=== PATIENT | female | born 1965 | race Caucasian/White ===

== ENCOUNTER 2017-01-13 09:15 | Emergency (ER) | payer OTHER ==
[2017-01-13 10:47] LABS: HEMOGLOBIN 12.4 gm/dl (12.3-15.3); RED BLOOD COUNT 4.45 M/UL (4.00-5.10); WHITE BLOOD COUNT 5.1 K/UL (4.5-11.0)
[2017-01-13 11:36] LABS: BUN/CREATININE RATIO 34 (0-10)
[2017-06-12] MEDS ORDERED: ELAVIL 10 MG TA10 MG PO (21:52)
[2017-06-12] MEDS ORDERED: LISINOPRIL40 MG PO (21:52)
[2017-06-12] MEDS ORDERED: HYDROCHLOROTHIA25 MG PO (21:53)
[2017-06-13] MEDS ORDERED: LEVAQUIN750 MG PO (16:09)
[2017-06-13] MEDS ORDERED: PROTONIX40 M1 PO (16:10)
[2017-06-13] MEDS ORDERED: PRAVACHOL40 MG PO (16:11)
[2017-06-13] MEDS ORDERED: TESSALON PERLE100 MG PO (16:11)
== END 2017-01-13 13:22 | disposition home or self-care (01) ==
LOC: ER1 09:15
PROVIDERS: Emergency Medicine
DX: M25.512 Pain in left shoulder (principal); R07.9 Chest pain, unspecified; E11.9 Type 2 diabetes mellitus without complications; I10 Essential (primary) hypertension; Z79.82 Long term (current) use of aspirin; Z79.899 Other long term (current) drug therapy
CPT/HCPCS: 36415; 73030; 80053; 84484; 85025; 93005; 99284

== ENCOUNTER → 2017-03-17 | Outpatient (CLI) | payer OTHER ==
[~2017-03-17] MED LIST: ELAVIL 10 MG TA10 MG PO; HYDROCHLOROTHIA25 MG PO; LEVAQUIN750 MG PO; LISINOPRIL40 MG PO; PRAVACHOL40 MG PO; PROTONIX40 M1 PO; TESSALON PERLE100 MG PO
== END ==
LOC: RAD 08:44
DX: M54.5 Low back pain (principal); M47.816 Spondylosis without myelopathy or radiculopathy, lumbar region
CPT/HCPCS: 72110

== ENCOUNTER → 2021-02-18 | Outpatient (CLI) | payer OTHER ==
[~2021-02-18] MED LIST changes: +AMARYL1 MG PO; +ARIMIDEX 1 MG TA1 MG PO; +ASPIRIN EC81 MG PO; +HYDROCODON-ACE1 EAC4 PO; +HYDROXYCHLOROQ200 MG PO; +HYDROXYZINE HCL50 MG PO; +JANUVIA 100 MG100 MG PO; +OMEGA-3 ACID ETH1 GM PO; +PREDNISONE 50 M50 MG PO; +PREDNISONE20 MG PO; +TAMSULOSIN HCL0.4 MG PO; +ZOFRAN ODT 4 MG4 MG PO
== END ==
LOC: KOH-I 08:00
DX: K76.0 Fatty (change of) liver, not elsewhere classified (principal); R07.89 Other chest pain; E04.1 Nontoxic single thyroid nodule
CPT/HCPCS: 71250

== ENCOUNTER → 2021-02-24 | Outpatient (CLI) | payer OTHER | LOC: EXRD 08:27 | DX: R10.13 Epigastric pain (principal); R79.89 Other specified abnormal findings of blood chemistry; K76.0 Fatty (change of) liver, not elsewhere classified; N20.0 Calculus of kidney | CPT/HCPCS: 76700 ==

== ENCOUNTER → 2021-03-06 | Outpatient (CLI) | payer OTHER | LOC: EXRD 14:25 | DX: E04.1 Nontoxic single thyroid nodule (principal); E04.2 Nontoxic multinodular goiter | CPT/HCPCS: 76536 ==

== ENCOUNTER → 2021-04-08 | Outpatient (CLI) | payer OTHER | LOC: CT 13:55 | DX: E11.9 Type 2 diabetes mellitus without complications (principal); I10 Essential (primary) hypertension | CPT/HCPCS: 36415; 82565; 84520 ==

== ENCOUNTER → 2021-04-15 | Outpatient (CLI) | payer OTHER | LOC: CT 09:30 | DX: R10.13 Epigastric pain (principal) | CPT/HCPCS: 74160; Q9963 ==

== ENCOUNTER 2021-06-15 13:43 | Emergency (ER) | payer OTHER ==
[2021-06-15 16:07] LABS: HEMOGLOBIN 13.3 gm/dl (12.3-15.3); RED BLOOD COUNT 4.64 M/UL (4.00-5.10); WHITE BLOOD COUNT 3.5 K/UL (4.5-11.0)
[2021-06-15 16:30] LABS: BUN/CREATININE RATIO 22 (0-10)
[2021-06-15] MEDS ORDERED: ZOFRAN ODT 4 MG4 MG PO (17:30)
== END 2021-06-15 18:30 | disposition home or self-care (01) ==
LOC: ER1 13:43
PROVIDERS: Family Medicine
DX: U07.1 COVID-19 (principal); E87.6 Hypokalemia; E11.9 Type 2 diabetes mellitus without complications; Z90.710 Acquired absence of both cervix and uterus; Z79.899 Other long term (current) drug therapy
CPT/HCPCS: 80053; 81001; 83735; 84439; 84443; 85025; 93005; 96374; 99285; J2405

== ENCOUNTER 2021-06-21 11:26 | Emergency (ER) | payer OTHER ==
[2021-06-21 12:20] LABS: HEMOGLOBIN 13.1 gm/dl (12.3-15.3); RED BLOOD COUNT 4.77 M/UL (4.00-5.10); WHITE BLOOD COUNT 5.2 K/UL (4.5-11.0)
[2021-06-21 12:39] LABS: BUN/CREATININE RATIO 18 (0-10)
[2021-06-21] MEDS ORDERED: FLOMAX0.4 MG PO (12:48)
[2021-06-21] MEDS ORDERED: ZOFRAN4 MG PO (13:01)
[2021-06-21] MEDS ORDERED: HYDROCODON-ACE1 EAC4 PO (13:03)
== END 2021-06-21 13:14 | disposition home or self-care (01) ==
LOC: ER1 11:26
PROVIDERS: Physician Assistant
DX: N13.2 Hydronephrosis with renal and ureteral calculous obstruction (principal); E11.9 Type 2 diabetes mellitus without complications; I10 Essential (primary) hypertension; Z87.442 Personal history of urinary calculi; Z85.3 Personal history of malignant neoplasm of breast; Z90.49 Acquired absence of other specified parts of digestive tract; Z90.710 Acquired absence of both cervix and uterus
CPT/HCPCS: 80053; 81001; 85025; 87086; 96374; 96375; 99284; J1885; J2405

== ENCOUNTER 2021-09-22 16:05 | Emergency (ER) | payer OTHER ==
[~2021-09-22 16:05] MED LIST changes: +FLOMAX0.4 MG PO; +ZOFRAN4 MG PO
[2021-09-22 16:42] LABS: HEMOGLOBIN 14.2 gm/dl (12.3-15.3); RED BLOOD COUNT 4.81 M/UL (4.00-5.10); WHITE BLOOD COUNT 6.3 K/UL (4.5-11.0)
[2021-09-22 17:08] LABS: BUN/CREATININE RATIO 17 (0-10)
== END 2021-09-22 17:45 | disposition home or self-care (01) ==
LOC: ER1 16:05
PROVIDERS: Nurse Practitioner
DX: I10 Essential (primary) hypertension (principal); R51.9 Headache, unspecified; E11.9 Type 2 diabetes mellitus without complications; Z90.49 Acquired absence of other specified parts of digestive tract; Z90.710 Acquired absence of both cervix and uterus; Z79.82 Long term (current) use of aspirin; Z79.899 Other long term (current) drug therapy
CPT/HCPCS: 71045; 80053; 81001; 82550; 82553; 83874; 84484; 85025; 93005; 96374; 96375; 99284; J0780; J1100; J1200

== ENCOUNTER → 2021-10-23 | Outpatient (CLI) | payer OTHER | LOC: US 10-20 08:30 → EXRD 09:00 → US 09:30 | DX: K76.0 Fatty (change of) liver, not elsewhere classified (principal); M79.622 Pain in left upper arm | CPT/HCPCS: 76700; 76882 ==

== ENCOUNTER → 2022-03-12 | Outpatient (CLI) | payer MEDICARE, OTHER | LOC: RAD 15:44 | DX: J12.9 Viral pneumonia, unspecified (principal) | CPT/HCPCS: 71046 ==

== ENCOUNTER → 2022-05-31 | Outpatient (CLI) | payer MEDICARE, OTHER ==
[2022-06-01 13:09] LABS: ALPHA-1-ANTITRYPSIN, SERUM 177 mg/dL (101-187)
[2022-06-01 15:10] LABS: MITOCHONDRIAL (M2) ANTIBODY <20.0 Units (0.0-20.0)
== END ==
LOC: LAB 11:23
PROVIDERS: Internal Medicine Gastroenterology
DX: R79.89 Other specified abnormal findings of blood chemistry (principal)
CPT/HCPCS: 36415; 80076; 82103; 82728; 83540; 83550; 86038

== ENCOUNTER → 2022-06-03 | Outpatient (CLI) | payer MEDICARE, OTHER ==
[2022-06-04 08:13] LABS: HBSAG SCREEN Negative (Negative); HCV AB 0.1 (0.0-0.9); HEP A AB, IGM Negative (Negative); HEP B CORE AB, IGM Negative (Negative)
== END ==
LOC: LAB 10:15
PROVIDERS: Internal Medicine Gastroenterology
DX: R79.89 Other specified abnormal findings of blood chemistry (principal); R94.5 Abnormal results of liver function studies
CPT/HCPCS: 36415; 80074